=== PATIENT | male | born 1980 | race Caucasian/White ===

== ENCOUNTER 2016-12-31 04:17 | Inpatient (IN) | payer SELFPAY ==
[~2016-12-31] VITALS: Ht 157.5 cm; Wt 60.0 kg
[~2016-12-31 04:17] MED LIST: DONNTAB12 PO; OMEP20CA5 PO; PROM25TA5 PO; RANI150 PO; SUCR1TAB6 PO
[2016-12-31 04:29] VITALS: BP 127/84; PULSE 81; RESP 16; TEMP 98.1; O2SAT 99
[2016-12-31] MEDS ORDERED: SODIUM CHLORIDE FLUSH PRN IVF (06:00)
[2016-12-31] MEDS ORDERED: MORPHINE SULFATE 4 MG/ML INJ IV PRN (06:15)
[2016-12-31] MEDS ORDERED: ACETAMINOPHEN/HYDROcodone 325 MG/5 MG TAB PO PRN (06:45)
[2016-12-31] MEDS ORDERED: MAGNESIUM HYDROXIDE SUSP 30 ML CUP PO PRN (06:45)
[2016-12-31] MEDS ORDERED: ONDANSETRON HCL 4 MG/2 ML VIAL IV PRN (06:45)
[2016-12-31] MEDS ORDERED: SODIUM CHLORIDE 0.9% FLUSH 5 ML FLUSH IVF PRN (06:45)
[2016-12-31] MEDS ORDERED: ENALAPRILAT 1.25 MG/ML VIAL IV PRN (06:45)
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
[2016-12-31 07:13] VITALS: BP 147/88; PULSE 75; RESP 16; O2SAT 100
[2016-12-31] MEDS: SODIUM CHLOR 0.9% 1000 ML INJ 1,000 ML IV SCH ×2 (07:19→17:00)
[2016-12-31] MEDS: CLINDAMYCIN 600 MG/NS 100 ML IV SCH ×4 (07:31→16:00)
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
[2016-12-31] MEDS: PANTOPRAZOLE SODIUM 40 MG VIAL IVP SCH (08:31)
[2016-12-31] MEDS: SODIUM CHLORIDE FLUSH BID IVF SCH ×2 (08:31→21:00)
[2016-12-31] MEDS: DOCUSATE SODIUM 100 MG CAP PO SCH ×2 (08:31→21:22)
[2016-12-31] MEDS: HYDROmorphone HCL PF 1 MG/ML VIAL IVP PRN ×2 (09:54→13:05)
[2016-12-31 10:52] VITALS: BP 131/89; PULSE 82; RESP 16; O2SAT 100
[2016-12-31] MEDS ORDERED: PHENYLEPH/NS 1000 MCG/10 ML SYR IV ONE (12:00)
[2016-12-31] MEDS ORDERED: PROPOFOL 200 MG/20 ML AMP IV ONE (12:00)
[2016-12-31 12:13] VITALS: O2SAT 98
[2016-12-31 12:17] VITALS: BP 119/71; PULSE 69; RESP 16; O2SAT 100
[2016-12-31] MEDS ORDERED: LIDOCAINE 2%/EPINEPHrine 1:100,000 30ML MDV ONE (14:47)
[2016-12-31] MEDS ORDERED: CLINDAMYCIN PHOS 600 MG/4 ML VIAL ONE (15:14)
[2016-12-31] MEDS ORDERED: FAMOTIDINE 20 MG/2 ML VIAL ONE (15:18)
[2016-12-31] MEDS ORDERED: DO NOT ADM ANY ANTICOAGULANT DRUGS XX PRN (16:30)
--- NOTE | 2016-12-31 16:36 | HHI.PR ---
Immediate Post Op Note Procedure Date: Dec 31, 2016 Pre Op Diagnosis: bi lateral nasal bone fractures Post Op Diagnosis: valeria Surgeon: Herminio Davis Courtesy Driver(s): sweta murillo Procedure: closed reduction nasal bone fractures Complications: none Estimated blood loss: minimal Anesthesia: General, Local (2%lidocaine with 1:100,00 epi 3 cc) Patient to: PACU Patient Condition: Good Date/Time of Procedure: SEE SURGICAL CARE RECORD Herminio Davis DMD Dec 31, 2016 16:36
[2016-12-31] MEDS ORDERED: MIDAZOLAM HCL 2 MG/2 ML VIAL ONE (16:40)
[2016-12-31] MEDS ORDERED: methylPREDNISolone SOD SUCC 125 MG/2 ML VIAL ONE (16:42)
[2016-12-31] MEDS ORDERED: methylPREDNISolone SOD SUCC 125 MG/2 ML VIAL IV ONE (16:45)
[2016-12-31] MEDS: ACETAMINOPHEN/HYDROcodone 325 MG/5 MG TAB PO PRN (20:07)
[2016-12-31 21:00] VITALS: BP 139/84; PULSE 80; RESP 20; TEMP 98; O2SAT 99
[2017-01-01] VITALS: BP 126/80; PULSE 78; RESP 20; TEMP 97; O2SAT 97
[2017-01-01] MEDS: ACETAMINOPHEN/HYDROcodone 325 MG/5 MG TAB PO PRN ×3 (00:25→08:59)
[2017-01-01] MEDS: CLINDAMYCIN 600 MG/NS 100 ML IV SCH ×4 (00:25→08:59)
[2017-01-01 04:53] VITALS: BP 130/78; PULSE 80; RESP 20; TEMP 98; O2SAT 96
[2017-01-01] MEDS: SODIUM CHLOR 0.9% 1000 ML INJ 1,000 ML IV SCH (05:27)
[2017-01-01 08:51] VITALS: BP 116/69; PULSE 50; RESP 20; TEMP 96.6; O2SAT 100
[2017-01-01] MEDS: SODIUM CHLORIDE FLUSH BID IVF SCH (09:00)
[2017-01-01] MEDS: DOCUSATE SODIUM 100 MG CAP PO SCH (09:00)
[2017-01-01] MEDS: PANTOPRAZOLE SODIUM 40 MG VIAL IVP SCH (09:03)
[2017-01-01] MEDS ORDERED: CLEO300C2 PO ×2 (10:10→10:18)
[2017-01-01] MEDS ORDERED: HYDR-3516 PO (10:15)
[2017-01-01] MEDS ORDERED: DOCU1CAP39 PO (10:18)
[2017-01-01] MEDS ORDERED: CLIN1CAP6 PO (10:33)
[2017-01-01] MEDS ORDERED: HYDR-3288 PO (10:33)
[2017-01-01 12:39] VITALS: BP 136/65; PULSE 64; RESP 18; TEMP 96.4; O2SAT 100
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
== END 2017-01-01 12:54 | disposition home or self-care (01) | DRG 156 ==
LOC: NEPE 04:17 → NEDA 05:17 → N07B 19:51
PROVIDERS: ADMIT Surgery; ATTEND Surgery
PROC: 0NSBXZZ Reposition Nasal Bone, External Approach (ICD-10-PCS; principal; 2016-12-31 15:40)
DX: S02.2XXA Fracture of nasal bones, initial encounter for closed fracture (principal); F17.210 Nicotine dependence, cigarettes, uncomplicated; K21.9 Gastro-esophageal reflux disease without esophagitis; V19.3XXA Pedal cyclist (driver) (passenger) injured in unspecified nontraffic accident, initial encounter; Y93.55 Activity, bike riding; Y92.410 Unspecified street and highway as the place of occurrence of the external cause; F12.90 Cannabis use, unspecified, uncomplicated
CPT/HCPCS: 94150; C9113; J1170; J2250; J2270; J2370; J2930; J3010; J7030